=== PATIENT | male | born 1990 | race Caucasian/White ===

== ENCOUNTER 2018-03-26 20:41 | Inpatient (IN) | payer BC ==
[2018-03-26] MEDS ORDERED: KETOROLAC 30 MG/ML 1 ML VIAL IVP STA (21:27)
[2018-03-26] MEDS ORDERED: SODIUM CHLORIDE 0.9% 1,000 ML IV STA (21:27)
--- NOTE | 2018-03-26 21:32 | ED ---
General Adult HPI - General Chief complaint: Abdominal Pain Stated complaint: Abd Pain Time Seen by Provider: 03/26/18 21:04 Source: patient, RN notes reviewed Mode of arrival: ambulatory Limitations: no limitations - History of Present Illness Initial comments: 28-year-old male presents to the emergency determine for chief complaint of right upper quadrant pain times 6 months. Patient states the pain has come and gone every other day for the past few weeks. Patient states the pain today has lasted a few hours. Patient admits to nausea and 1 episode of vomiting. Patient denies any fevers or chills at home. Patient denies any diarrhea and states his last bowel movement was today. Patient has not spoken with his primary care provider for this yet. Patient has not taken anything for pain. Patient has no other complaints at this time including shortness of breath, chest pain, abdominal pain, nausea or vomiting, headache, or visual changes. - Related Data Home Medications Medication Instructions Recorded Confirmed No Known Home Medications 03/26/18 03/26/18 Allergies Allergy/AdvReac Type Severity Reaction Status Date / Time Penicillins Allergy Rash/Hives Verified 03/26/18 20:55 Review of Systems ROS Statement: Those systems with pertinent positive or pertinent negative responses have been documented in the HPI. ROS Other: All systems not noted in ROS Statement are negative. Past Medical History Past Medical History: Asthma History of Any Multi-Drug Resistant Organisms: None Reported Past Surgical History: Adenoidectomy, Tonsillectomy Past Psychological History: No Psychological Hx Reported Smoking Status: Former smoker Past Alcohol Use History: Occasional Past Drug Use History: None Reported General Exam Limitations: no limitations General appearance: alert, in no apparent distress Eye exam: Present: normal appearance ENT exam: Present: normal exam Neck exam: Present: normal inspection, full ROM. Absent: tenderness, meningismus, lymphadenopathy Respiratory exam: Present: normal lung sounds bilaterally. Absent: respiratory distress, wheezes, rales, rhonchi, stridor Cardiovascular Exam: Present: regular rate, normal rhythm, normal heart sounds. Absent: systolic murmur, diastolic murmur, rubs, gallop, clicks GI/Abdominal exam: Present: soft, tenderness (RUQ and midepigastric tenderness) , normal bowel sounds. Absent: distended, guarding, rebound, rigid Course Vital Signs 03/26/18 03/26/18 20:54 22:59 Temperature 98.7 F Pulse Rate 72 84 Respiratory 18 18 Rate Blood Pressure 124/81 127/58 O2 Sat by Pulse 98 99 Oximetry Medical Decision Making - Medical Decision Making 28-year-old male presents to the emergency determine for chief complaint of right upper quadrant pain times 6 months. Patient states it occurs every other day for the past 2 weeks. Patient states today it is lasted for a few hours. Patient has nausea with the pain and states it is all right upper quadrant. Vitals within normal limits in the ER and patient afebrile. No fevers at home. On exam patient does have right upper quadrant tenderness as well as mild midepigastric tenderness. CBC and CMP within normal limits. No white count elevation. Liver enzymes unremarkable. Ultrasound shows numerous large gallstones. Mild gallbladder wall thickening. This is consistent with acute and chronic cholecystitis. Patient started on IV antibiotics and admitted to Dr. Barcenas. - Lab Data Result diagrams: 03/26/18 21:50 03/26/18 21:50 Lab Results 03/26/18 03/26/18 03/26/18 Range/Units 21:50 21:50 22:55 WBC 10.1 (3.8-10.6) k/uL RBC 5.12 (4.30-5.90) m/uL Hgb 14.8 (13.0-17.5) gm/dL Hct 44.1 (39.0-53.0) % MCV 86.1 (80.0-100.0) fL MCH 28.9 (25.0-35.0) pg MCHC 33.6 (31.0-37.0) g/dL RDW 13.1 (11.5-15.5) % Plt Count 228 (150-450) k/uL Neutrophils % 74 % Lymphocytes % 19 % Monocytes % 5 % Eosinophils % 1 % Basophils % 0 % Neutrophils # 7.5 (1.3-7.7) k/uL Lymphocytes # 2.0 (1.0-4.8) k/uL Monocytes # 0.5 (0-1.0) k/uL Eosinophils # 0.1 (0-0.7) k/uL Basophils # 0.0 (0-0.2) k/uL Sodium 139 (137-145) mmol/L Potassium 4.2 (3.5-5.1) mmol/L Chloride 102 (98-107) mmol/L Carbon Dioxide 27 (22-30) mmol/L Anion Gap 10 mmol/L BUN 21 H (9-20) mg/dL Creatinine 1.00 (0.66-1.25) mg/dL Est GFR (CKD-EPI)AfAm >90 (>60 ml/min/1.73 sqM) Est GFR (CKD-EPI)NonAf >90 (>60 ml/min/1.73 sqM) Glucose 106 H (74-99) mg/dL Calcium 9.9 (8.4-10.2) mg/dL Total Bilirubin 0.5 (0.2-1.3) mg/dL AST 24 (17-59) U/L ALT 38 (21-72) U/L Alkaline Phosphatase 65 (38-126) U/L Total Protein 7.3 (6.3-8.2) g/dL Albumin 4.4 (3.5-5.0) g/dL Amylase 39 (30-110) U/L Lipase 55 (23-300) U/L Urine Color Yellow Urine Appearance Clear (Clear) Urine pH 5.5 (5.0-8.0) Ur Specific [place] 1.026 (1.001-1.035) Urine Protein Trace H (Negative) Urine Glucose (UA) Negative (Negative) Urine Ketones 1+ H (Negative) Urine Blood Small H (Negative) Urine Nitrite Negative (Negative) Urine Bilirubin Negative (Negative) Urine Urobilinogen 2.0 (<2.0) mg/dL Ur Leukocyte Esterase Negative (Negative) Urine RBC 16 H (0-5) /hpf Urine Mucus Few H (None) /hpf Disposition Clinical Impression: Cholecystitis Disposition: ADMITTED IP TO THIS HOSP Condition: Good Is patient prescribed a controlled substance at d/c from ED?: No Referrals: Tulio López DO [Primary Care Provider] - 1-2 days Time of Disposition: 23:47
[2018-03-26 22:07] LABS: Basophils % (A) 0 %; Eosinophils # (A) 0.1 k/uL (0-0.7); Eosinophils % (A) 1 %; HCT 44.1 % (39.0-53.0); HGB 14.8 gm/dL (13.0-17.5); Lymphocytes % (A) 19 %; MCH 28.9 pg (25.0-35.0); MCHC 33.6 g/dL (31.0-37.0); MCV 86.1 fL (80.0-100.0); Mean Platelet Volume 6.7; Monocytes # (A) 0.5 k/uL (0-1.0); Monocytes % (A) 5 %; Neutrophils # (A) 7.5 k/uL (1.3-7.7); Neutrophils % (A) 74 %; Platelet Count 228 k/uL (150-450); RBC 5.12 m/uL (4.30-5.90); RDW 13.1 % (11.5-15.5); WBC 10.1 k/uL (3.8-10.6)
[2018-03-26 22:15] LABS: ALT 38 U/L (21-72); AST 24 U/L (17-59); Albumin 4.4 g/dL (3.5-5.0); Alkaline Phosphatase 65 U/L (38-126); Amylase 39 U/L (30-110); Anion Gap 10 mmol/L; Blood Urea Nitrogen 21 mg/dL (9-20); Calcium 9.9 mg/dL (8.4-10.2); Carbon Dioxide 27 mmol/L (22-30); Chloride 102 mmol/L (98-107); Glucose 106 mg/dL (74-99); Lipase 55 U/L (23-300); Potassium 4.2 mmol/L (3.5-5.1); Sodium 139 mmol/L (137-145); Total Bilirubin 0.5 mg/dL (0.2-1.3); Total Protein 7.3 g/dL (6.3-8.2)
--- NOTE | 2018-03-26 22:48 | US ---
EXAMINATION TYPE: US gallbladder DATE OF EXAM: 03/26/2018 COMPARISON: NONE CLINICAL HISTORY: Pain. EXAM MEASUREMENTS: Liver Length: 14.5 cm Gallbladder Wall: 0.3 cm CBD: 0.7 cm Right Kidney: 10.4 x 4.6 x 4.1 cm Limited due to overlying bowel gas. Pancreas: Obscured by bowel gas, unable to evaluate Liver: wnl Gallbladder: Multiple large echogenic shadowing focus likely cholelithiasis with one in the neck Evidence for sonographic Marinelli's sign: Yes CBD: Limited visualization, but portion seen appears enlarged Right Kidney: wnl IMPRESSION: Numerous large gallstones. Mild gallbladder wall thickening. This is consistent with acut e and chronic cholecystitis. No dilated ducts.
[2018-03-26 23:09] LABS: Appearance,Urine Clear (Clear); Bilirubin,Urine Negative (Negative); Blood,Urine Small (Negative); Color,Urine Yellow; Glucose,Urine (UA) Negative (Negative); Ketones,Urine 1+ (Negative); Leukocyte Esterase,Urine Negative (Negative); Mucus,Urine Few /hpf; Nitrite,Urine Negative (Negative); PH, Urine 5.5 (5.0-8.0); Protein,Urine Trace (Negative); RBC,Urine 16 /hpf (0-5); Specific Gravity,Urine 1.026 (1.001-1.035)
[2018-03-26] MEDS ORDERED: LEVOFLOXACIN 500MG-D5W PMX 500 MG in DEXTROSE/WATER 1 100ML.BAG IVPB STA (23:17)
[2018-03-26] MEDS ORDERED: ACETAMINOPHEN IV (For NPO) 1,000 MG in EMPTY BAG 1 BAG IVPB SCH (23:45)
[2018-03-26] MEDS ORDERED: NALOXONE 0.4 MG/ML 1 ML VIAL IV PRN (23:47)
[2018-03-27] MEDS: SODIUM CHLORIDE 0.9% 1,000 ML IV SCH ×2 (00:48→11:05)
[2018-03-27 01:16] VITALS: BMI 31.7
[2018-03-27] MEDS: metroNIDAZOLE-NS PMX 500 MG in SALINE 1 100ML.BAG IVPB SCH ×3 (01:21→16:44)
[2018-03-27] MEDS ORDERED: DEXAMETHASONE SOD PHOSPHATE 10 MG/ML 1 ML VIAL IV ONE (12:10)
[2018-03-27] MEDS ORDERED: HYDROmorphone 0.5 MG/0.5 ML SYRINGE IVP PRN (12:10)
[2018-03-27] MEDS ORDERED: SCOPOLAMINE 1.5MG/72HR PATCH TRANSDERM ONE (12:10)
[2018-03-27] MEDS ORDERED: ONDANSETRON 4 MG/2 ML VIAL IVP ONE ×2 (12:10→12:59)
[2018-03-27] MEDS ORDERED: LACTATED RINGERS 1,000 ML IV SCH (12:15)
[2018-03-27] MEDS ORDERED: HEPARIN SODIUM,PORCINE 5,000 UNIT/ML 1 ML VIAL SQ ONE (12:59)
--- NOTE | 2018-03-27 13:01 | P.GSHP ---
History of Present Illness H&P Date: 03/27/18 Chief Complaint: Right upper quadrant pain This is a 28-year-old male who's had complete the right quadrant pain for the last several months. Patient was seen emergency room and found to have lithiasis. He presents today for laparoscopic cholecystectomy. Past Medical History Past Medical History: Asthma History of Any Multi-Drug Resistant Organisms: None Reported Past Surgical History: Adenoidectomy, Tonsillectomy Past Anesthesia/Blood Transfusion Reactions: No Reported Reaction Past Psychological History: No Psychological Hx Reported Smoking Status: Current some day smoker Past Alcohol Use History: Occasional Past Drug Use History: None Reported - Past Family History Mother Family Medical History: Diabetes Mellitus, Myocardial Infarction ([place]) Father Family Medical History: Diabetes Mellitus, Hypertension Medications and Allergies Home Medications Medication Instructions Recorded Confirmed Type No Known Home Medications 03/26/18 03/27/18 History Allergies Allergy/AdvReac Type Severity Reaction Status Date / Time Penicillins Allergy Rash/Hives Verified 03/27/18 08:54 Surgical - Exam Vital Signs Temp Pulse Resp BP Pulse Ox 98.7 F 72 18 124/81 98 03/26/18 20:54 03/26/18 20:54 03/26/18 20:54 03/26/18 20:54 03/26/18 20:54 - General well developed, no distress - Eyes PERRL - ENT normal pinna - Neck no masses - Respiratory normal expansion - Cardiovascular Rhythm: regular - Abdomen Mild right upper quadrant tenderness Abdomen: soft Results - Labs 03/26/18 21:50 03/26/18 21:50 Abnormal Lab Results - Last 24 Hours (Table) 03/26/18 03/26/18 Range/Units 21:50 22:55 BUN 21 H (9-20) mg/dL Glucose 106 H (74-99) mg/dL Urine Protein Trace H (Negative) Urine Ketones 1+ H (Negative) Urine Blood Small H (Negative) Urine RBC 16 H (0-5) /hpf Urine Mucus Few H (None) /hpf Diabetes panel 03/26/18 Range/Units 21:50 Sodium 139 (137-145) mmol/L Potassium 4.2 (3.5-5.1) mmol/L Chloride 102 (98-107) mmol/L Carbon Dioxide 27 (22-30) mmol/L BUN 21 H (9-20) mg/dL Creatinine 1.00 (0.66-1.25) mg/dL Glucose 106 H (74-99) mg/dL Calcium 9.9 (8.4-10.2) mg/dL AST 24 (17-59) U/L ALT 38 (21-72) U/L Alkaline Phosphatase 65 (38-126) U/L Total Protein 7.3 (6.3-8.2) g/dL Albumin 4.4 (3.5-5.0) g/dL Calcium panel 03/26/18 Range/Units 21:50 Calcium 9.9 (8.4-10.2) mg/dL Albumin 4.4 (3.5-5.0) g/dL Pituitary panel 03/26/18 Range/Units 21:50 Sodium 139 (137-145) mmol/L Potassium 4.2 (3.5-5.1) mmol/L Chloride 102 (98-107) mmol/L Carbon Dioxide 27 (22-30) mmol/L BUN 21 H (9-20) mg/dL Creatinine 1.00 (0.66-1.25) mg/dL Glucose 106 H (74-99) mg/dL Calcium 9.9 (8.4-10.2) mg/dL Adrenal panel 03/26/18 Range/Units 21:50 Sodium 139 (137-145) mmol/L Potassium 4.2 (3.5-5.1) mmol/L Chloride 102 (98-107) mmol/L Carbon Dioxide 27 (22-30) mmol/L BUN 21 H (9-20) mg/dL Creatinine 1.00 (0.66-1.25) mg/dL Glucose 106 H (74-99) mg/dL Calcium 9.9 (8.4-10.2) mg/dL Total Bilirubin 0.5 (0.2-1.3) mg/dL AST 24 (17-59) U/L ALT 38 (21-72) U/L Alkaline Phosphatase 65 (38-126) U/L Total Protein 7.3 (6.3-8.2) g/dL Albumin 4.4 (3.5-5.0) g/dL Assessment and Plan Assessment: Cholelithiasis, cholecystitis. We'll perform laparoscopic cholecystectomy.
[2018-03-27] MEDS ORDERED: NEOSTIGMINE 1 MG/ML 10 ML VIAL ONE (14:05)
[2018-03-27] MEDS ORDERED: KETOROLAC 30 MG/ML 1 ML VIAL ONE (14:05)
[2018-03-27] MEDS ORDERED: SUCCINYLCHOLINE CHLORIDE 100 MG/5 ML SYR IV ONE (14:05)
[2018-03-27] MEDS ORDERED: ROCURONIUM BROMIDE 10 MG/ML 10 ML VIAL IV ONE (14:05)
[2018-03-27] MEDS ORDERED: GLYCOPYRROLATE 0.2 MG/ML 2 ML VIAL ONE (14:05)
[2018-03-27] MEDS ORDERED: LIDOCAINE 1% INJ 10MG/ML (20 ML MDV) ONE (14:05)
[2018-03-27] MEDS ORDERED: PROPOFOL 10 MG/ML 20 ML VIAL IV ONE (14:05)
[2018-03-27] MEDS ORDERED: fentaNYL (PF) 50 MCG/ML 2 ML AMP ONE (14:05)
[2018-03-27] MEDS ORDERED: MIDAZOLAM 2 MG/2 ML VIAL ONE (14:05)
[2018-03-27] MEDS ORDERED: SODIUM CHLORIDE 0.9% 100 ML with ceFAZolin 2,000 MG IV ONE ×2 (14:28)
[2018-03-27] MEDS ORDERED: LACTATED RINGERS 1,000 ML IV ONE ×2 (14:48→15:06)
[2018-03-27] MEDS ORDERED: NALOXONE 0.4 MG/ML 1 ML VIAL IV PRN (15:06)
[2018-03-27] MEDS ORDERED: HYDROmorphone 1 MG/ML 1 ML SYRINGE IVP PRN (15:06)
[2018-03-27] MEDS ORDERED: ONDANSETRON 4 MG/2 ML VIAL IVP PRN (15:06)
[2018-03-27] MEDS ORDERED: ACETAMINOPHEN TAB 325 MG TAB PO PRN (15:06)
--- NOTE | 2018-03-27 15:11 | P.OP ---
Date of Procedure: 03/27/18 Preoperative Diagnosis: Cholelithiasis, cholecystitis Postoperative Diagnosis: Cholelithiasis, cholecystitis Procedure(s) Performed: Laparoscopic cholecystectomy Anesthesia: JANNIE Surgeon: Donta Barcenas Estimated Blood Loss (ml): 5 Pathology: other (Gallbladder) Condition: stable Disposition: PACU Description of Procedure: The patient was placed on the operating table. The patient received a general endotracheal tube anesthesia. The patients abdomen was prepped and draped in the usual sterile fashion. Through an infraumbilical stab incision, the fascia of the anterior abdominal wall was grasped with a pair of Kochers and then the Veress needle was placed in the peritoneal cavity. Position of the Veress needle was confirmed with positive drop test. The abdomen was then insufflated. After adequate insufflation, the 10 mm trocar was placed in the peritoneal cavity. Following this the laparoscope was placed in the peritoneal cavity. The patient was placed in the head-up, right side up position and then a 5 mm trocar was placed in the right lateral and right subcostal position under direct visualization. A 8 mm trocar was placed in the epigastric position. The gallbladder was grasped in the fundus and infundibulum. Traction on the gallbladder was placed in the lateral and the cephalad positions. The triangle of Calot was visualized.. The cystic duct was bluntly dissected until the union of the cystic duct and common bile duct was seen. The cystic duct was then divided and sealed with the Harmonic scissors. A PDS Endoloop was then placed throughout the cystic duct stump. The cystic artery divided and sealed with the Harmonic scissors. The gallbladder was then removed from the liver bed using Harmonic scissors. The gallbladder was then extracted through the epigastric port site. Operative field was checked for any bleeding spots and Harmonic scissors was used to coagulate the liver bed. The abdomen was irrigated. The trocars were removed. The skin was closed using interrupted 3-0 Vicryl suture. Dermabond dressing were applied. The patient tolerated the procedure well.
[2018-03-27] MEDS ORDERED: ALBUTEROL NEBULIZED 2.5 MG/3 ML INHALATION PRN (16:31)
[2018-03-27] MEDS: HYDROcodone/APAP 5-325MG 1 EACH TAB PO PRN (16:38)
--- NOTE | 2018-03-27 18:08 | CONS ---
CONSULTATION DATE OF SERVICE: 03/27/2018. REASON FOR CONSULTATION: Advice regarding asthma and other medical issues requested by Dr. Barcenas. HISTORY OF PRESENT ILLNESS: This 28-year-old gentleman with the past medical history of asthma, tonsillectomy, underwent laparoscopic cholecystectomy for cholelithiasis and cholecystitis by Dr. Barcenas. There is no history of fever, rigors or chills. No history of headache, loss of consciousness or seizures, chest pain, palpitations at this time. PAST MEDICAL HISTORY: History of asthma, history of tonsillectomy, adenoidectomy. MEDICATIONS: None. ALLERGIES: PENICILLIN. FAMILY HISTORY: Family history of diabetes and myocardial infarction in the family. SOCIAL HISTORY: History of smoking. Occasional alcohol intake. REVIEW OF SYSTEMS: ENT: No diminished vision. No diminished hearing. Cardiovascular system: No angina, palpitations. Respiratory system: As mentioned earlier. GI: No nausea or vomiting. : No dysuria or hematuria. Nervous system: No numbness or weakness. Allergy/Immunology: No asthma or hayfever. Musculoskeletal as mentioned earlier. Hematology/Oncology: No history of anemia. ENDOCRINE: No history of diabetes or hypothyroidism. CONSTITUTIONAL: As mentioned earlier. DERMATOLOGY: Negative. RHEUMATOLOGY: Negative. PSYCHIATRY: As mentioned earlier. PHYSICAL EXAMINATION: Alert and oriented x3. Blood pressure 118/56, respiration 18, temp 97.8, pulse ox 98% on room air. HEENT: Conjunctivae normal. Oral mucosa moist. Neck is no jugular venous distention. No carotid bruit. No lymph node enlargement. Cardiovascular: S1, S2. Respirations: Breath sounds diminished in the bases. A few scattered rhonchi. No crackles. ABDOMEN: Soft. Status post surgery. Legs no edema. No swelling. NERVOUS SYSTEM: No focal deficits. LABS: CBC within normal limits. Glucose 1067. ASSESSMENT: 1. Status post laparoscopic cholecystectomy for cholelithiasis and cholecystitis. 2. History of bronchial asthma. 3. History of adenoidectomy. 4. History of tonsillectomy. 5. History of nicotine dependence. RECOMMENDATIONS AND DISCUSSION: In this 28-year-old gentleman who presented with multiple medical problems, we will monitor the patient closely. Continue the current medications, management and symptomatic treatment. I recommend resume the home medications. Incentive spirometry. DVT prophylaxis. Otherwise we will monitor the patient closely and the patient may be asked to follow up with Dr. López after discharge. Thank you Dr. Barcenas for letting us participate in the care of this patient. MMBEATRICEL / IJN: [id number] / HUMBERTO
[2018-03-27] MEDS: KETOROLAC 30 MG/ML 1 ML VIAL IVP PRN (20:01)
[2018-03-27 21:26] VITALS: RESP 16
[2018-03-28] MEDS: metroNIDAZOLE-NS PMX 500 MG in SALINE 1 100ML.BAG IVPB SCH ×2 (00:29→08:49)
[2018-03-28] MEDS: HYDROcodone/APAP 5-325MG 1 EACH TAB PO PRN (00:35)
[2018-03-28 05:24] VITALS: BP 104/60; PULSE 78; TEMP 97.9
[2018-03-28] MEDS: KETOROLAC 30 MG/ML 1 ML VIAL IVP PRN (08:49)
[2018-03-28] MEDS ORDERED: ENOXAPARIN 40 MG/0.4 ML SYRINGE SQ SCH (09:00)
--- NOTE | 2018-03-28 11:50 | P.DS ---
Providers Date of admission: 03/26/18 23:32 Expected date of discharge: 03/28/18 Attending physician: Donta Barcenas Consults: 03/27/18 15:06 Consult Physician Routine Consulting Provider: Thanh Chan Consult Reason/Comments: med manage Do you want consulting provider notified?: Yes Primary care physician: [facility] Course: This is a 28-year-old male who underwent laparoscopic ostectomy for acute Brendon size. His hospital stay was unremarkable. Please see chart for details. Procedures: Laparoscopic cholecystectomy Patient Condition at Discharge: Good Plan - Discharge Summary Discharge Rx Participant: No New Discharge Prescriptions: New Docusate [Colace] 100 mg PO BID #20 capsule HYDROcodone/APAP 7.5-325MG [[place] 7.5-325] 1 tab PO Q4H PRN 3 Days #18 tab PRN Reason: Pain Discharge Medication List Docusate [Colace] 100 mg PO BID #20 capsule 03/28/18 [Rx] HYDROcodone/APAP 7.5-325MG [[place] 7.5-325] 1 tab PO Q4H PRN 3 Days #18 tab 03/28 [Rx] Follow up Appointment(s)/Referral(s): Tulio López DO [Primary Care Provider] - 1-2 days Donta Barcenas MD [STAFF PHYSICIAN] - 1 Week Discharge Disposition: HOME SELF-CARE
--- NOTE | 2018-03-28 14:28 | PN ---
PROGRESS NOTE DATE OF SERVICE: 03/28/2018. INTERVAL HISTORY: This 28-year-old gentleman who was admitted after laparoscopic cholecystectomy for cholelithiasis and cholecystitis is improving significantly. No chest pain. No palpitations. No fever. EXAM: Alert and oriented x3. Pulse 78, blood pressure 104/68, respiration 18, temperature 97.9, pulse ox 98% on room air. HEENT: Conjunctivae normal. NECK: No jugular venous distention. CARDIOVASCULAR: S1, S2. RESPIRATORY: Breath sounds diminished in the bases. No rhonchi, no crackles. ABDOMEN: Soft, status post surgery. LEGS: No edema. NERVOUS SYSTEM: No focal deficits. LABS: Noted. UA noted. ASSESSMENT: 1. Status post laparoscopic cholecystectomy for cholelithiasis and cholecystitis. 2. History of bronchial asthma. 3. History of adenoidectomy. 4. History of tonsillectomy. 5. History of nicotine dependence. RECOMMENDATIONS AND DISCUSSION: I recommend to continue current management and symptomatic treatment. Continue incentive spirometry. Smoking cessation. Otherwise, closely follow with Surgery and primary physician. The rest of the recommendation per Dr. Barcenas. Further recommendations to follow. MMODL / IJN: [id number] /
== END 2018-03-28 13:02 | disposition home or self-care (01) | DRG 419 ==
LOC: EC 20:41 → 5MS5E 23:32
PROVIDERS: ADMIT Surgery; ATTEND Surgery
PROC: 0FT44ZZ Resection of Gallbladder, Percutaneous Endoscopic Approach (ICD-10-PCS; principal; 2018-03-27 08:45)
DX: K80.12 Calculus of gallbladder with acute and chronic cholecystitis without obstruction (principal); J45.909 Unspecified asthma, uncomplicated; F17.200 Nicotine dependence, unspecified, uncomplicated; Z71.6 Tobacco abuse counseling; Z88.0 Allergy status to penicillin; Z83.3 Family history of diabetes mellitus; Z82.49 Family history of ischemic heart disease and other diseases of the circulatory system
CPT/HCPCS: 36415; 76705; 80053; 81001; 82150; 83605; 83690; 85025; 88304; 96361; 96365; 96375; 99285